=== PATIENT | female | born 1995 | race Two or more races ===

== ENCOUNTER 2017-04-08 15:11 | Emergency (ER) | payer SELFPAY ==
--- NOTE | ~2017-04-08 | US106 ---
[facility] A Service of [facility] RADIOLOGY TEXT RESULTS PATIENT: TYSHAWN FLOOD LOCATION: [facility] : [birth year] UNIT #: [id number] AGE: [address]: Sara Nunn MD SEX: F ORDER DR: [id number] [facility] [address] [place], [place] [address] [id number] E MR#: [id number] #: [id number] NAME: TYSHAWN FLOOD : 1995 SEX: F STUDY DATE/TIME: 04/08/2017 17:56 UNIT: [facility] ROOM: STUDY DESCRIPTION: US Preg Uterus Transvaginal Attending Physician: Sara Nunn M.D. Ordering Physician: Michael Lao D.O. Primary Care Physician: No Primary Care Physician MEDICAL IMAGING REPORT This report is preliminary unless electronic signature is present EXAM Transabdominal and transvaginal pelvic ultrasound 04/08/2017 HISTORY 4 day history of abdominal pain, positive beta HCG, approximately 8 weeks by gestational age. FINDINGS On transabdominal images the uterus is poorly seen. There is no adnexal mass or free fluid. On transvaginal images, there is a disorganized thickened endometrium. There is no evidence of intrauterine gestational sac. There is no free fluid or adnexal mass. IMPRESSION Disorganized thickened endometrium without evidence of a gestational sac. No evidence of intrauterine . There is also no adnexal mass or free fluid and the ovaries are normal. There is no direct evidence of ectopic . Dictated by... Abran Rodrigez M.D. THIS IS AN ELECTRONICALLY VERIFIED REPORT Abran Rodrigez M.D. at 04/18/2017 3:59 PM TEV/rnr TD: 04/09/2017 01:37 [facility] A Service of [facility] RADIOLOGY TEXT RESULTS PATIENT: TYSHAWN FLOOD LOCATION: [facility] : 94 UNIT #: [id number] AGE: [address]: Sara Nunn MD SEX: F ORDER DR: JOB #: [id number] MEDICAL IMAGING REPORT Page 1 of 1 COPY
[2017-04-08 17:05] LABS: URINE SOURCE CLEAN CATCH
[2017-04-08 17:09] LABS: URINE APPEARANCE CLEAR; URINE BILIRUBIN NEG (NEG); URINE BLOOD 2+ (NEG); URINE COLOR YELLOW; URINE GLUCOSE NEG (NEG); URINE KETONE NEG (NEG); URINE LEUKOCYTE ESTERASE 1+ (NEG); URINE NITRATE NEG (NEG); URINE PROTEIN NEG (NEG); URINE SPECIFIC GRAVITY 1.008 (1.003-1.035); URINE UROBILINOGEN 0.2 MG/DL (NEG)
[2017-04-08 17:12] LABS: URINE BACTERIA AUWI NEG (NEGATIVE); URINE SQUAMOUS EPITHELIAL CELL NONE SEEN /[HPF]
[2017-04-08 17:14] LABS: BASOPHIL# 0.1 X10e3 (0-0.3); BASOPHIL% 0.5 % (0-2.5); EOSINOPHIL# 0.1 X10e3 (0-0.7); EOSINOPHIL% 0.6 % (0.0-7.0); HEMATOCRIT 36.1 % (35.0-45.0); LYMPHOCYTE# 1.7 X10e3 (1.0-3.5); LYMPHOCYTE% 12.6 % (17.0-45.0); MEAN CELL VOLUME 81.4 FL (83-96); MEAN CORPUSCULAR HGB CONC 33.2 g/dL (30-36); MEAN PLATELET VOLUME 8.5 FL (6.5-11.5); MONOCYTE# 0.7 X10e3 (0-1.0); MONOCYTE% 5.6 % (3.0-12.0); NEUTROPHIL# 10.6 X10e3 (1.5-7.1); NEUTROPHIL% 80.7 % (40-75); PLATELET COUNT 261 X10e3 (140-420); RED BLOOD COUNT 4.43 X10e (3.90-5.30); WHITE BLOOD COUNT 13.1 X10e3 (4.0-10.5)
[2017-04-08 17:15] LABS: CULTURE INDICATED? NO
[2017-04-08 17:15] LABS: DIFF IND NO
[2017-04-08 17:23] LABS: PARTIAL THROMBOPLASTIN TIME 27.6 SECONDS (23.5-31.3); PROTHROMBIN TIME (PATIENT) 10.1 SECONDS (9.6-11.5)
[2017-04-08 17:35] LABS: ALBUMIN SERUM 4.4 g/dL (3.5-5.0); ALKALINE PHOSPHATASE 36 U/L (32-92); ALT (SGPT) 30 U/L (10-40); AST (SGOT) 19 U/L (10-42); BILIRUBIN, DIRECT <0.1 mg/dL (0.0-0.2); BILIRUBIN,INDIRECT 0.1 mg/dL (0.0-0.9); BILIRUBIN,TOTAL 0.2 mg/dL (0.2-2.0); BLOOD UREA NITROGEN 8 mg/dL (9-23); BUN/CREATININE RATIO 11.42; CALCIUM SERUM 8.8 mg/dL (8.4-10.2); CARBON DIOXIDE 25 mmol/L (22-31); CHLORIDE 104 mmol/L (100-111); CREATININE SERUM 0.7 mg/dL (0.6-1.4); GLUCOSE FASTING 107 mg/dL (70-110); LIPASE 20 U/L (22-51); POTASSIUM 3.4 mmol/L (3.5-5.1); PROTEIN TOTAL SERUM 7.8 g/dL (6.0-8.3); SODIUM 138 mmol/L (135-145)
[2017-04-12 01:24] LABS: CHLAMYDIA TRACH Detected (Not Detected); N GONOR Not Detected (Not Detected)
== END 2017-04-08 20:40 | disposition home or self-care (01) ==
LOC: CED 15:11
PROVIDERS: Emergency Medicine
DX: O20.0 Threatened abortion (principal); Z3A.08 8 weeks gestation of pregnancy
CPT/HCPCS: 36415; 76817; 80048; 80076; 81003; 83690; 84702; 84703; 85025; 85610; 85730; 86900; 86901; 87491; 87591; 87808; 87905; 96360; 96372; 99284; J0696; J2270; J2405